=== PATIENT | female | born 1990 | race Caucasian/White ===

== ENCOUNTER 2019-12-11 15:25 | Emergency (ER) | payer BC ==
--- NOTE | 2019-12-11 15:50 | ER Document Report ---
ED GI/ - General Chief Complaint: Vaginal Bleeding Stated Complaint: VAGINAL BLEEDING AND CRAMPING Time Seen by Provider: 12/11/19 15:34 Primary Care Provider: [facility] [Provider Group] - Follow up as needed Mode of Arrival: Ambulatory Information source: Patient Notes: Patient presents complaining of irregular bleeding and spotting for the past 4 m ont. Patient was having vaginal intercourse prior to arrival and developed heavy vaginal bleeding during intercourse. Patient complains of right lower back pain and lower pelvic tenderness. Patient denies any nausea or vomiting. Patient denies any rough intercourse. - HPI Patient complains to provider of: Vaginal bleeding. No: Vaginal pain, Vomiting Onset: Just prior to arrival Timing/Duration: Sudden Quality of pain: Achy Context: denies: Location: Pelvis, Other - Right lower back Vaginal bleeding (Compared to normal period): Heavier, Passing clots Sexual history: Active Associated symptoms: denies: Dysuria, Fever, Nausea, Urinary hesitancy, Urinary frequency, Urinary retention, Urinary urgency, Vaginal discharge, Vomiting Exacerbated by: Denies Relieved by: Denies Similar symptoms previously: No Recently seen / treated by doctor: No - Related Data Allergies/Adverse Reactions: Penicillins Allergy (Verified 12/11/19 15:58) Past Medical History - General Information source: Patient - Social History Smoking Status: Never Smoker Frequency of alcohol use: Occasional Drug Abuse: None Occupation: Works from home Family History: Reviewed & Not Pertinent Renal/ Medical History: Reports: Other - Endometriosis, fibroid uterus Past Surgical History: Reports: Hx Gynecologic Surgery Review of Systems - Review of Systems Constitutional: No symptoms reported. denies: Fever EENT: No symptoms reported Cardiovascular: No symptoms reported. denies: Chest pain Respiratory: No symptoms reported. denies: Cough, Short of breath Gastrointestinal: Abdominal pain. denies: Vomiting Genitourinary: No symptoms reported Female Genitourinary: Vaginal bleeding. denies: , Vaginal discharge Musculoskeletal: Back pain Skin: No symptoms reported Hematologic/Lymphatic: No symptoms reported Neurological/Psychological: No symptoms reported Physical Exam - Vital signs Vitals: Temp Pulse Resp BP Pulse Ox 97.9 F 82 16 127/82 H 99 12/11/19 15:30 12/11/19 15:30 12/11/19 15:30 12/11/19 15:30 12/11/19 15:30 - General General appearance: Appears well, Alert In distress: None - HEENT Head: Normocephalic, Atraumatic Eyes: Normal Conjunctiva: Normal Nasal: Normal Mouth/Lips: Normal Mucous membranes: Normal Neck: Normal, Supple. No: Lymphadenopathy - Respiratory Respiratory status: No respiratory distress Chest status: Nontender Breath sounds: Normal. No: Rales, Rhonchi, Stridor, Wheezing Chest palpation: Normal - Cardiovascular Rhythm: Regular Heart sounds: S1 appreciated, S2 appreciated - Abdominal Inspection: Normal Distension: No distension Bowel sounds: Normal Tenderness: Tender - lower pelvic Organomegaly: No organomegaly - Genitourinary External exam: Normal Speculum exam: Normal, Cervix closed Vaginal bleeding: Mild Bimanuel exam: Normal. No: Cervical motion tender, Adnexal mass, Adnexal tenderness - Back Back: Tender - Right lower lumbar paraspinal tenderness. No: CVA tenderness - Extremities General upper extremity: Normal inspection, Normal strength General lower extremity: Normal inspection, Normal strength - Neurological Neuro grossly intact: Yes Cognition: Normal Ruiz Coma Scale Eye Opening: Spontaneous Gary Coma Scale Verbal: Oriented Ruiz Coma Scale Motor: Obeys Commands Ruiz Coma Scale Total: 15 - Psychological Associated symptoms: Normal affect, Normal mood - Skin Skin Temperature: Warm Skin Moisture: Dry Skin Color: Normal Course - Re-evaluation Re-evalutation: 12/11/19 18:49 Patient without any abnormal findings noted on ultrasound. Patient was stable H&H and vital signs. No concern for . Will advise patient to follow- up with software designer for further evaluation at this time. - Vital Signs Vital signs: Temp Pulse Resp BP Pulse Ox 97.8 F 64 16 128/90 H 98 12/11/19 19:11 12/11/19 19:11 12/11/19 19:11 12/11/19 19:11 12/11/19 19:11 - Laboratory Result Diagrams: 12/11/19 16:03 12/11/19 16:03 Laboratory results interpreted by me: 12/11/19 12/11/19 16:03 16:03 MCHC 36.8 H Sodium 136.4 L Carbon Dioxide 31 H Glucose 111 H Labs- Entire Visit 12/11/19 12/11/19 12/11/19 16:03 16:03 16:03 WBC 6.8 RBC 4.45 Hgb 14.0 Hct 38.0 MCV 85 MCH 31.4 MCHC 36.8 H RDW 12.9 Plt Count 352 Lymph % (Auto) 35.7 Sheridan % (Auto) 6.3 Eos % (Auto) 1.3 Baso % (Auto) 1.1 Absolute Neuts (auto) 3.8 Absolute Lymphs (auto) 2.4 Absolute Monos (auto) 0.4 Absolute Eos (auto) 0.1 Absolute Basos (auto) 0.1 Seg Neutrophils % 55.6 Sodium 136.4 L Potassium 4.6 Chloride 100 Carbon Dioxide 31 H Anion Gap 5 BUN 9 Creatinine 0.52 Est GFR ( Amer) > 60 Est GFR (MDRD) Non-Af > 60 Glucose 111 H Calcium 9.5 Total Bilirubin 0.3 Direct Bilirubin 0.0 Neonat Total Bilirubin Not Reportable Neonat Direct Bilirubin Not Reportable Neonat Indirect Bili Not Reportable AST 26 ALT 15 Alkaline Phosphatase 58 Total Protein 7.3 Albumin 4.5 Serum HCG, Qual NEGATIVE Epi Cells (Wet Prep) Bacteria (Wet Prep) Trichomonas (Wet Prep) Vaginal WBC Vaginal RBC Vaginal Yeast Chlamydia DNA (PCR) N.gonorrhoeae DNA (PCR) 12/11/19 12/11/19 16:16 16:16 WBC RBC Hgb Hct MCV MCH MCHC RDW Plt Count Lymph % (Auto) Sheridan % (Auto) Eos % (Auto) Baso % (Auto) Absolute Neuts (auto) Absolute Lymphs (auto) Absolute Monos (auto) Absolute Eos (auto) Absolute Basos (auto) Seg Neutrophils % Sodium Potassium Chloride Carbon Dioxide Anion Gap BUN Creatinine Est GFR ( Amer) Est GFR (MDRD) Non-Af Glucose Calcium Total Bilirubin Direct Bilirubin Neonat Total Bilirubin Neonat Direct Bilirubin Neonat Indirect Bili AST ALT Alkaline Phosphatase Total Protein Albumin Serum HCG, Qual Epi Cells (Wet Prep) 3+ EPITHELIALS SEEN Bacteria (Wet Prep) 3+ BACTERIA SEEN Trichomonas (Wet Prep) NO TRICHOMONAS SEEN Vaginal WBC NO WBCS SEEN Vaginal RBC 4+ RBCS SEEN Vaginal Yeast NO YEAST SEEN Chlamydia DNA (PCR) NOT DETECTED N.gonorrhoeae DNA (PCR) NOT DETECTED - Diagnostic Test Radiology reviewed: Reports reviewed Discharge - Discharge Clinical Impression: Vagina bleeding Condition: Stable Disposition: HOME, SELF-CARE Instructions: Vaginal Bleeding ([facility]) Additional Instructions: Return immediately for any new or worsening symptoms Followup with your primary care provider, call tomorrow to make a followup appointment Follow-up with a software designer for further management, call Thursday for follow-up appointment Prescriptions: Naproxen [Naprosyn 250 Nmg Tablet] 1 tab PO BID #14 tablet Referrals: [facility] [Provider Group] - Follow up as needed
[2019-12-11 16:27] LABS: ABSOLUTE BASOPHILS # (AUTO) 0.1 10^3/uL (0.0-0.2); ABSOLUTE EOSINOPHILS # (AUTO) 0.1 10^3/uL (0.0-0.6); ABSOLUTE LYMPHOCYTES (AUTO) 2.4 10^3/uL (0.5-4.7); ABSOLUTE MONOCYTES (AUTO) 0.4 10^3/uL (0.1-1.4); ABSOLUTE NEUT (AUTO) 3.8 10^3/uL (1.7-8.2); BASOPHILS % (AUTO) 1.1 % (0-2); EOSINOPHILS % (AUTO) 1.3 % (0-6); LYMPHOCYTES % (AUTO) 35.7 % (13-45); MEAN CORPUSCULAR HEMOGLOBIN 31.4 pg (27.0-33.4); MEAN CORPUSCULAR HGB CONC 36.8 g/dL (32.0-36.0); MEAN CORPUSCULAR VOLUME 85 fl (80-97); MONOCYTES % (AUTO) 6.3 % (3-13); PLATELET COUNT 352 10^3/uL (150-450); RED BLOOD COUNT 4.45 10^6/uL (3.72-5.28); RED CELL DISTRIBUTION WIDTH 12.9 % (11.5-14.0); SEGMENTED NEUTROPHILS % (AUTO) 55.6 % (42-78); TOTAL CELLS COUNTED % (AUTO) 100 %; WHITE BLOOD COUNT 6.8 10^3/uL (4.0-10.5)
[2019-12-11 16:35] LABS: BACTERIA (WET MOUNT) 3+ BACTERIA SEEN; EPITHELIALS (WET MOUNT) 3+ EPITHELIALS SEEN; RBCS (WET MOUNT) 4+ RBCS SEEN; T.VAGINALIS (WET MOUNT) NO TRICHOMONAS SEEN; WBCS (WET MOUNT) NO WBCS SEEN; YEAST (WET MOUNT) NO YEAST SEEN
[2019-12-11 16:42] LABS: ALBUMIN 4.5 g/dL (3.5-5.0); ALKALINE PHOSPHATASE 58 U/L (38-126); ANION GAP 5 (5-19); ASPARTATE AMINO TRANSFERASE 26 U/L (14-36); BILIRUBIN,TOTAL 0.3 mg/dL (0.2-1.3); BLOOD UREA NITROGEN 9 mg/dL (7-20); CALCIUM 9.5 mg/dL (8.4-10.2); CARBON DIOXIDE 31 mmol/L (22-30); CHLORIDE 100 mmol/L (98-107); GLUCOSE 111 mg/dL (75-110); POTASSIUM 4.6 mmol/L (3.6-5.0); TOTAL PROTEIN 7.3 g/dL (6.3-8.2)
[2019-12-11 18:00] LABS: CHLAM PCR NOT DETECTED (NOT DETECT)
--- NOTE | 2019-12-11 18:44 | RADIOLOGY REPORT (SQ) ---
EXAM DESCRIPTION: U/S NON OB PEL TV W/DOPPLER IMAGES COMPLETED DATE/TIME: 12/11/2019 3:45 pm REASON FOR STUDY: pelvic pain, vag bleeding COMPARISON: None. TECHNIQUE: Dynamic and static grayscale images acquired of the pelvis via transvaginal approach and recorded on PACS. Additional selected color Doppler and spectral images recorded. LIMITATIONS: None. FINDINGS: UTERUS: Contour normal. No mass. ENDOMETRIAL STRIPE: No focal or generalized thickening. No masses. CERVIX: No nabothian cysts. RIGHT OVARY AND DOPPLER: Not visualized. No right adnexal mass. LEFT OVARY AND DOPPLER: Normal size. No worrisome masses. Normal arterial vascular flow without evide nce for torsion. FREE FLUID: None noted. OTHER: No other significant finding. MEASUREMENTS: UTERUS: 7.6 x 4.2 x 5 cm ENDOMETRIAL STRIPE: 12 mm RIGHT OVARY: Not visualized LEFT OVARY: 2.6 x 2.6 x 3.2 cm IMPRESSION: NORMAL TRANSVAGINAL PELVIC ULTRASOUND. TECHNICAL DOCUMENTATION: JOB ID: [id number] 2010 [employer]- All Rights Reserved Reading location - IP/workstation name: [email or web address]
[2019-12-11 19:14] VITALS: BP 128/90
== END 2019-12-11 19:11 | disposition home or self-care (01) ==
LOC: ER 15:25
DX: N93.9 Abnormal uterine and vaginal bleeding, unspecified (principal); M54.5 Low back pain; R10.2 Pelvic and perineal pain; Z88.0 Allergy status to penicillin; Z87.42 Personal history of other diseases of the female genital tract
CPT/HCPCS: 36415; 76830; 80053; 84703; 85025; 87210; 87491; 87591; 93976; 99284